=== PATIENT | female | born 1990 | race Caucasian/White ===

== ENCOUNTER 2018-11-11 21:03 | Emergency (ER) | payer BC, OTHER ==
[2018-11-11 21:18] VITALS: BP 117/69
[2018-11-11] MEDS ORDERED: Lactated Ringers 1,000 ML IV ONE (21:22)
[2018-11-11] MEDS ORDERED: Lactated Ringers 1,000 ML IV SCH (21:30)
[2018-11-11] MEDS ORDERED: Acetaminophen/HYDROcodone 325-5 MG Tab PO ONE (22:15)
--- NOTE | 2018-11-11 23:11 | EDM.PDOC ---
ED HPI GENERAL MEDICAL PROBLEM - General Chief Complaint: Upper Extremity Injury/Pain Stated Complaint: ARM INJURY Time Seen by Provider: 11/11/18 21:09 - History of Present Illness INITIAL COMMENTS - FREE TEXT/NARRATIVE: 28-year-old female presents emergency room after an injury to her right hand. The patient was walking down the stairs and stuffed her hand in into a "electrical service box. Patient states she felt a shock and has a shooting pain up her right forearm this pain has continued. Time of injury was roughly an hour ago. Patient denies any other injuries she did not hit her head she is up-to-date on her tetanus. right arm Pain Score (Numeric/FACES): 7 - Related Data Allergies Allergy/AdvReac Type Severity Reaction Status Date / Time cinnamon Allergy Anaphylactic Verified 11/11/18 21:18 Shock latex Allergy Anaphylactic Verified 11/11/18 21:18 Shock lidocaine Allergy Anaphylactic Verified 11/11/18 21:18 Shock menthol [From Icy Hot] Allergy Rash Verified 11/11/18 21:18 methyl salicylate Allergy Rash Verified 11/11/18 21:18 [From Icy Hot] Home Meds: Home Meds Acetaminophen [Tylenol Extra Strength] 500 mg PO Q4HR PRN 04/20/16 [History] Escitalopram [Lexapro] 10 mg PO DAILY 04/20/16 [History] Iron,Carbonyl/Vit C/Vit B12/Fa [Iron 100 Plus Tablet] 1 each PO DAILY 04/20/16 [ History] Levothyroxine 150 mcg PO ACBREAKFAST 04/20/16 [History] Vit 90/Iron Fum/Folic [ Formula] 1 each PO DAILY 04/20/16 [ History] Zolpidem [Ambien] 5 mg PO BEDTIME 04/20/16 [History] Acetaminophen/oxyCODONE [Percocet 325-5 MG] 1 tab PO Q8H PRN #20 tablet [Rx] Docusate Sodium [Colace] 100 mg PO Q12H PRN #0 cap 04/22/16 [Rx] Ibuprofen [IJD: Ibuprofen] 200 - 600 mg PO Q6H PRN #0 tablet 04/22/16 [Rx] Simethicone 80 mg PO QIDACANDBED tab.chew 04/22/16 [Rx] Past Medical History - Past Health History Medical/Surgical History: Denies 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: 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, Psychiatric History: Reports: Anxiety, Depression Endocrine/Metabolic History: Reports: Hypothyroidism - Infectious Disease History Infectious Disease History: Reports: None - Past Surgical History Endocrine Surgical History: Reports: None Social & Family History - Family History Family Medical History: Noncontributory Cardiac: Reports: [place] Other Cardiac Family History: father, grandparent Oncologic: Reports: Other (See Below) Other Oncologic Family History: cancer in grandparent-unknown - Tobacco Use Smoking Status *Q: Current Some Day Smoker Years of Tobacco use: 4 Packs/Tins Daily: 0.1 - Caffeine Use Caffeine Use: Reports: Coffee - Recreational Drug Use Recreational Drug Use: No Review of Systems - Review of Systems Review Of Systems: See Below Constitutional: Reports: No Symptoms Eyes: Reports: No Symptoms Ears: Reports: No Symptoms Nose: Reports: No Symptoms Mouth/Throat: Reports: No Symptoms Respiratory: Reports: No Symptoms Cardiovascular: Reports: No Symptoms GI/Abdominal: Reports: No Symptoms Genitourinary: Reports: No Symptoms Musculoskeletal: Reports: No Symptoms Skin: Reports: No Symptoms Neurological: Reports: No Symptoms ED EXAM, GENERAL - Physical Exam Exam: See Below Exam Limited By: No Limitations General Appearance: Alert, No Apparent Distress Head: Atraumatic, Normocephalic Neck: Normal Inspection, Supple, Non-Tender, Full Range of Motion. No: Lymphadenopathy (L), Lymphadenopathy (R) Respiratory/Chest: No Respiratory Distress, Lungs Clear, Normal Breath Sounds, No Accessory Muscle Use, Chest Non-Tender Cardiovascular: Regular Rate, Rhythm, No Edema, No Murmur Extremities: Other (Examination of her right forearm shows no injury that appears obvious to the right hand or upper extremity no evidence of any thermal injury no laceration or puncture no deformity or other abnormality seen neurovascular status appears to be intact. Really no significant swelling is present) EKG INTERPRETATION EKG Date: 11/11/18 Rhythm: NSR [place]: Normal P-Wave: Present QRS: Normal ST-T: Normal QT: Normal Comparison: NA - No Prior EKG EKG Interpretation Comments: Normal Course - Vital Signs Last Recorded V/S: Last Vital Signs Temp 37.2 C 11/11/18 21:13 Pulse 70 11/11/18 21:13 Resp 18 11/11/18 21:13 BP 117/69 11/11/18 21:13 Pulse Ox 100 11/11/18 21:13 - Orders/Labs/Meds Orders: Active Orders 24 hr Category Date Time Status EKG Documentation Completion [RC] STAT Care 11/11/18 21:20 Active Hand Comp Min 3V Rt [CR] Stat Exams 11/11/18 22:14 Taken MYOGLOBIN, URINE Stat Lab 11/11/18 22:00 Received URINALYSIS W/MICROSCOPIC [UA W/MICROSCOPIC] [URIN] Stat Lab 11/11/18 22:00 Results Lactated Ringers [Ringers, Lactated] 1,000 ml Med 11/11/18 21:30 Active IV ASDIRECTED Medication Orders Lactated Ringer's (Ringers, Lactated) 1,000 mls @ 150 mls/hr IV ASDIRECTED TU Last Admin: 11/11/18 23:00 Dose: 150 mls/hr Labs: Laboratory Tests 11/11/18 11/11/18 11/11/18 Range/Units 21:40 22:00 22:00 Sodium 141 (136-145) mEq/L Potassium 3.7 (3.5-5.1) mEq/L Chloride 105 (98-107) mEq/L Carbon Dioxide 27 (21-32) mEq/L Anion Gap 12.7 (5-15) BUN 15 (7-18) mg/dL Creatinine 0.8 (0.55-1.02) mg/dL Est Cr Clr Drug Dosing 83.20 mL/min Estimated GFR (MDRD) > 60 (>60) mL/min BUN/Creatinine Ratio 18.8 H (14-18) Glucose 78 (74-106) mg/dL Calcium 9.1 (8.5-10.1) mg/dL Total Bilirubin 0.4 (0.2-1.0) mg/dL AST 21 (15-37) U/L ALT 27 (14-59) U/L Alkaline Phosphatase 55 (46-116) U/L CK-MB (CK-2) 0.6 (0-3.6) ng/ml Troponin I < 0.017 (0.00-0.056) ng/mL Total Protein 7.7 (6.4-8.2) g/dl Albumin 4.4 (3.4-5.0) g/dl Globulin 3.3 gm/dL Albumin/Globulin Ratio 1.3 (1-2) Urine Color Yellow (Yellow) Urine Appearance Clear (Clear) Urine pH 7.5 (5.0-8.0) Ur Specific [place] 1.015 (1.005-1.030) Urine Protein Negative (Negative) Urine Glucose (UA) Negative (Negative) Urine Ketones Negative (Negative) Urine Occult Blood Negative (Negative) Urine Nitrite Negative (Negative) Urine Bilirubin Negative (Negative) Urine Urobilinogen 0.2 (0.2-1.0) Ur Leukocyte Esterase Negative (Negative) Urine HCG, Qual Negative (NEGATIVE) Meds: Medications Generic Name Dose Route Start Last Admin Trade Name Freq PRN Reason Stop Dose Admin Lactated Ringer's 1,000 mls @ 150 mls/hr 11/11/18 21:30 11/11/18 23:00 Ringers, Lactated IV 150 mls/hr ASDIRECTED TU Administration Discontinued Medications Generic Name Dose Route Start Last Admin Trade Name Freq PRN Reason Stop Dose Admin Hydrocodone Bitart/Acetaminophen 1 tab 11/11/18 22:15 11/11/18 22:20 [place] 325-5 Mg PO 11/11/18 22:16 1 tab ONETIME ONE Administration Lactated Ringer's 1,000 mls @ 999 minidrops/sec 11/11/18 21:22 11/11/18 21:38 Ringers, Lactated IV 11/11/18 21:23 999 minidrops/sec .BOLUS ONE Administration - Re-Assessments/Exams Free Text/Narrative Re-Assessment/Exam: 11/11/18 23:06 Labs unrevealing hCG negative x-ray of the hand unremarkable main concern is if she got a significant exposure to electrical current which I don't think is the case and she probably injured a peripheral nerve. However we'll have her push lots of fluids and return if her condition worsens Departure - Departure Time of Disposition: 23:06 Disposition: Home, Self-Care 01 Clinical Impression: Injury of right hand, Injury due to electrical exposure - Discharge Information Referrals: PCP,Not In Area [Primary Care Provider] - Additional Instructions: Return to the emergency room with any questions problems worsening symptoms. Follow-up in the clinic in 2 days if not completely better. [phone]. Use the pain medication one pill every 4-6 hours as needed for pain. Allow 12 hours after using this medication before driving or returning to work. Push lots and lots of fluids. - My Orders Last 24 Hours: My Active Orders 11/11/18 21:20 EKG Documentation Completion [RC] STAT 11/11/18 21:30 Lactated Ringers [Ringers, Lactated] 1,000 ml IV ASDIRECTED 11/11/18 22:00 MYOGLOBIN, URINE Stat URINALYSIS W/MICROSCOPIC [UA W/MICROSCOPIC] [URIN] Stat 11/11/18 22:14 Hand Comp Min 3V Rt [CR] Stat - Assessment/Plan Last 24 Hours: My Active Orders 11/11/18 21:20 EKG Documentation Completion [RC] STAT 11/11/18 21:30 Lactated Ringers [Ringers, Lactated] 1,000 ml IV ASDIRECTED 11/11/18 22:00 MYOGLOBIN, URINE Stat URINALYSIS W/MICROSCOPIC [UA W/MICROSCOPIC] [URIN] Stat 11/11/18 22:14 Hand Comp Min 3V Rt [CR] Stat
--- NOTE | 2018-11-12 10:00 | CR ---
Right hand: Four views of the right hand were obtained. Comparison: No previous study. Study is less than optimal with fingers being held in flexion. Patient's ring also obscures some bony details. No discrete fracture or other bony abnormality is appreciated. Impression: 1. Less than optimal exam. Within this limitation, nothing acute is appreciated on right hand exam. Diagnostic code #1
== END 2018-11-11 23:30 | disposition home or self-care (01) ==
LOC: JD.ED 21:03
DX: S69.91XA Unspecified injury of right wrist, hand and finger(s), initial encounter (principal); F41.9 Anxiety disorder, unspecified; F32.9 Major depressive disorder, single episode, unspecified; F17.210 Nicotine dependence, cigarettes, uncomplicated; Z91.040 Latex allergy status; Z88.8 Allergy status to other drugs, medicaments and biological substances; W86.8XXA Exposure to other electric current, initial encounter
CPT/HCPCS: 36415; 73130; 80053; 81001; 81025; 82553; 83874; 84484; 93005; 96365; 99284; A9270; J7120

== ENCOUNTER 2020-08-04 11:29 | Emergency (ER) | payer BC ==
[2020-08-04] MEDS ORDERED: Sodium Chloride 0.9% 10 ML Syringe FLUSH PRN (11:53)
[2020-08-04] MEDS ORDERED: Ondansetron 4 MG/2 ML SDV IVPUSH ONE (11:53)
[2020-08-04] MEDS ORDERED: Morphine 4 MG/ML VIAL IVPUSH ONE (11:54)
[2020-08-04] MEDS ORDERED: Ketorolac 30 MG/ML SDV IVPUSH ONE (11:54)
[2020-08-04] MEDS ORDERED: fentaNYL 100 MCG/2 ML SDV IVPUSH ONE ×2 (12:51→14:16)
[2020-08-04] MEDS ORDERED: LORazepam 1 MG Tab PO ONE (13:52)
--- NOTE | 2020-08-04 14:24 | EDM.PDOC ---
ED HPI GENERAL MEDICAL PROBLEM - General Chief Complaint: Abdominal Pain Stated Complaint: R SIDE/ABDOMINAL PAIN Time Seen by Provider: 08/04/20 11:41 Source of Information: Reports: Patient History Limitations: Reports: No Limitations - History of Present Illness INITIAL COMMENTS - FREE TEXT/NARRATIVE: The patient presents with right lower abdominal pain and right flank pain. This started about 3 days ago and has progressed. She has nausea and vomiting. She has no fever, chills, cough, congestion, runny nose, chest pain, shortness of breath, dysuria or diarrhea. She has no history of kidney stones. She has no hematuria. She has no gallbladder but she has an appendix. Onset: Gradual Duration: Day(s): Location: Reports: Abdomen Quality: Reports: Sharp Severity: Severe Improves with: Reports: None Worsens with: Reports: None Associated Symptoms: Reports: Nausea/Vomiting. Denies: Chest Pain, Cough, Fever/Chills, Headaches, Shortness of Breath Right Lower Abdomen Pain Score (Numeric/FACES): 8 - Related Data Allergies Allergy/AdvReac Type Severity Reaction Status Date / Time latex Allergy Severe Anaphylactic Verified 08/04/20 13:15 Shock lidocaine Allergy Severe Anaphylactic Verified 08/04/20 13:15 Shock menthol [From Icy Hot] Allergy Severe Rash Verified 08/04/20 13:15 cinnamon Allergy Anaphylactic Verified 08/04/20 11:40 Shock methyl salicylate Allergy Rash Verified 08/04/20 11:40 [From Icy Hot] hydromorphone [From Dilaudid] AdvReac Severe Hallucinati Verified 08/04/20 13:15 ons Home Meds: Home Meds Acetaminophen [Tylenol Extra Strength] 500 mg PO Q4HR PRN 04/20/16 [History] Escitalopram [Lexapro] 15 mg PO DAILY 04/20/16 [History] Levothyroxine 150 mcg PO ACBREAKFAST 04/20/16 [History] Docusate Sodium [Colace] 100 mg PO Q12H PRN #0 cap 04/22/16 [Rx] Ibuprofen [IJD: Ibuprofen] 200 - 600 mg PO Q6H PRN #0 tablet 04/22/16 [Rx] Lactobacillus Combination No.4 [Probiotic] 1 cap PO DAILY 08/04/20 [History] oxyCODONE HCl/Acetaminophen [Percocet 5-325 mg Tablet] 1 - 2 each PO Q6HR PRN #20 tablet 08/04/20 [Rx] Past Medical History - Past Health History Medical/Surgical History: Denies 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, Psychiatric History: Reports: Anxiety, Depression Endocrine/Metabolic History: Reports: Hypothyroidism - Infectious Disease History Infectious Disease History: Reports: Chicken Pox - Past Surgical History GI Surgical History: Reports: Cholecystectomy Female Surgical History: Reports: Section, Other (See Below) Other Female Surgeries/Procedures: tummy tuck Endocrine Surgical History: Reports: None Social & Family History - Family History Family Medical History: Noncontributory Cardiac: Reports: [place] Other Cardiac Family History: father, grandparent Oncologic: Reports: Other (See Below) Other Oncologic Family History: cancer in grandparent-unknown - Tobacco Use Tobacco Use Status *Q: Former Tobacco User Used Tobacco, but Quit: Yes Month/Year Tobacco Last Used: 2009 - Caffeine Use Caffeine Use: Reports: Coffee - Recreational Drug Use Recreational Drug Use: No ED ROS GENERAL - Review of Systems Review Of Systems: See Below Constitutional: Reports: No Symptoms HEENT: Reports: No Symptoms Respiratory: Reports: No Symptoms Cardiovascular: Reports: No Symptoms Endocrine: Reports: No Symptoms GI/Abdominal: Reports: Abdominal Pain, Nausea. Denies: Diarrhea, Vomiting : Reports: Flank Pain. Denies: Dysuria, Frequency Musculoskeletal: Reports: Back Pain ED EXAM, GI/ABD - Physical Exam Exam: See Below Exam Limited By: No Limitations General Appearance: Alert, Mild Distress Ears: Normal External Exam Throat/Mouth: Normal Inspection Head: Atraumatic, Normocephalic Neck: Normal Inspection Respiratory/Chest: No Respiratory Distress, Lungs Clear, Normal Breath Sounds Cardiovascular: Regular Rate, Rhythm, No Edema, No Murmur GI/Abdominal Exam: Soft, No Organomegaly, No Mass, Tender (Moderate tenderness to the RLQ) Back Exam: Normal Inspection Course - Vital Signs Last Recorded V/S: Last Vital Signs Temp 97.7 F 08/04/20 11:37 Pulse 75 08/04/20 11:37 Resp 18 08/04/20 11:37 BP 120/77 08/04/20 11:37 Pulse Ox 100 08/04/20 11:37 - Orders/Labs/Meds Orders: Active Orders 24 hr Category Date Time Status Peripheral IV Care [RC] . DIRECTED Care 08/04/20 11:53 Active HYDROmorphone [Dilaudid] Med 08/04/20 15:49 Once 1 mg IVPUSH ONETIME ONE Sodium Chloride 0.9% [Saline Flush] Med 08/04/20 11:53 Active 10 ml FLUSH ASDIRECTED PRN ED Antiemetic Medication Reflex [OM.PC] Stat Oth 08/04/20 11:53 Ordered Peripheral IV Insertion Adult [OM.PC] Stat Oth 08/04/20 11:53 Ordered Medication Orders Sodium Chloride (Saline Flush) 10 ml FLUSH ASDIRECTED PRN PRN Reason: Keep Vein Open Last Admin: 08/04/20 12:25 Dose: 10 ml Documented by: AMI Labs: Laboratory Tests 08/04/20 08/04/20 08/04/20 Range/Units 12:15 12:15 12:15 WBC 5.60 (3.98-10.04) K/mm3 RBC 4.42 (3.98-5.22) M/mm3 Hgb 14.1 D (11.2-15.7) gm/dl Hct 42.0 (34.1-44.9) % MCV 95.0 H (79.4-94.8) fl MCH 31.9 (25.6-32.2) pg MCHC 33.6 (32.2-35.5) g/dl RDW Std Deviation 40.1 (36.4-46.3) fL Plt Count 200 D (182-369) K/mm3 MPV 9.7 (9.4-12.3) fl Neut % (Auto) 48.1 (34.0-71.1) % Lymph % (Auto) 34.6 (19.3-51.7) % [place] % (Auto) 8.0 (4.7-12.5) % Eos % (Auto) 8.6 H (0.7-5.8) Baso % (Auto) 0.5 (0.1-1.2) % Neut # (Auto) 2.69 (1.56-6.13) K/mm3 Lymph # (Auto) 1.94 (1.18-3.74) K/mm3 [place] # (Auto) 0.45 H (0.24-0.36) K/mm3 Eos # (Auto) 0.48 H (0.04-0.36) K/mm3 Baso # (Auto) 0.03 (0.01-0.08) K/mm3 Sodium 139 (136-145) mEq/L Potassium 3.7 (3.5-5.1) mEq/L Chloride 102 (98-107) mEq/L Carbon Dioxide 27 (21-32) mEq/L Anion Gap 13.7 (5-15) BUN 11 (7-18) mg/dL Creatinine 0.9 (0.55-1.02) mg/dL Est Cr Clr Drug Dosing 72.95 mL/min Estimated GFR (MDRD) > 60 (>60) mL/min BUN/Creatinine Ratio 12.2 L (14-18) Glucose 86 (74-106) mg/dL Calcium 9.3 (8.5-10.1) mg/dL Total Bilirubin 0.7 (0.2-1.0) mg/dL AST 22 (15-37) U/L ALT 30 (14-59) U/L Alkaline Phosphatase 55 (46-116) U/L Total Protein 7.8 (6.4-8.2) g/dl Albumin 4.4 (3.4-5.0) g/dl Globulin 3.4 gm/dL Albumin/Globulin Ratio 1.3 (1-2) Lipase 90 (73-393) U/L HCG, Qual Negative (NEGATIVE) Urine Color (Yellow) Urine Appearance (Clear) Urine pH (5.0-8.0) Ur Specific [place] (1.005-1.030) Urine Protein (Negative) Urine Glucose (UA) (Negative) Urine Ketones (Negative) Urine Occult Blood (Negative) Urine Nitrite (Negative) Urine Bilirubin (Negative) Urine Urobilinogen (0.2-1.0) Ur Leukocyte Esterase (Negative) Urine RBC (0-5) /hpf Urine WBC (0-5) /hpf Ur Squamous Epith Cells (0-5) /hpf Urine Bacteria (FEW) /hpf Urine Mucus (FEW) /hpf 08/04/20 Range/Units 12:21 WBC (3.98-10.04) K/mm3 RBC (3.98-5.22) M/mm3 Hgb (11.2-15.7) gm/dl Hct (34.1-44.9) % MCV (79.4-94.8) fl MCH (25.6-32.2) pg MCHC (32.2-35.5) g/dl RDW Std Deviation (36.4-46.3) fL Plt Count (182-369) K/mm3 MPV (9.4-12.3) fl Neut % (Auto) (34.0-71.1) % Lymph % (Auto) (19.3-51.7) % [place] % (Auto) (4.7-12.5) % Eos % (Auto) (0.7-5.8) Baso % (Auto) (0.1-1.2) % Neut # (Auto) (1.56-6.13) K/mm3 Lymph # (Auto) (1.18-3.74) K/mm3 [place] # (Auto) (0.24-0.36) K/mm3 Eos # (Auto) (0.04-0.36) K/mm3 Baso # (Auto) (0.01-0.08) K/mm3 Sodium (136-145) mEq/L Potassium (3.5-5.1) mEq/L Chloride (98-107) mEq/L Carbon Dioxide (21-32) mEq/L Anion Gap (5-15) BUN (7-18) mg/dL Creatinine (0.55-1.02) mg/dL Est Cr Clr Drug Dosing mL/min Estimated GFR (MDRD) (>60) mL/min BUN/Creatinine Ratio (14-18) Glucose (74-106) mg/dL Calcium (8.5-10.1) mg/dL Total Bilirubin (0.2-1.0) mg/dL AST (15-37) U/L ALT (14-59) U/L Alkaline Phosphatase (46-116) U/L Total Protein (6.4-8.2) g/dl Albumin (3.4-5.0) g/dl Globulin gm/dL Albumin/Globulin Ratio (1-2) Lipase (73-393) U/L HCG, Qual (NEGATIVE) Urine Color Light yellow (Yellow) Urine Appearance Clear (Clear) Urine pH 7.0 (5.0-8.0) Ur Specific [place] 1.020 (1.005-1.030) Urine Protein Negative (Negative) Urine Glucose (UA) Negative (Negative) Urine Ketones Negative (Negative) Urine Occult Blood Negative (Negative) Urine Nitrite Negative (Negative) Urine Bilirubin Negative (Negative) Urine Urobilinogen 0.2 (0.2-1.0) Ur Leukocyte Esterase Negative (Negative) Urine RBC 0-5 (0-5) /hpf Urine WBC 0-5 (0-5) /hpf Ur Squamous Epith Cells 0-5 (0-5) /hpf Urine Bacteria Few (FEW) /hpf Urine Mucus Few (FEW) /hpf Meds: Medications Generic Name Dose Route Start Last Admin Trade Name Freq PRN Reason Stop Dose Admin Sodium Chloride 10 ml 08/04/20 11:53 08/04/20 12:25 Saline Flush FLUSH 10 ml ASDIRECTED PRN Administration Keep Vein Open Discontinued Medications Generic Name Dose Route Start Last Admin Trade Name Freq PRN Reason Stop Dose Admin Fentanyl 100 mcg 08/04/20 12:51 08/04/20 12:57 Sublimaze IVPUSH 08/04/20 12:52 100 mcg ONETIME ONE Administration Fentanyl 50 mcg 08/04/20 14:16 08/04/20 14:33 Sublimaze IVPUSH 08/04/20 14:17 50 mcg ONETIME ONE Administration Ketorolac Tromethamine 30 mg 08/04/20 11:54 08/04/20 12:24 Toradol IVPUSH 08/04/20 11:55 30 mg ONETIME ONE Administration Lorazepam 1 mg 08/04/20 13:52 08/04/20 14:09 Ativan PO 08/04/20 13:53 1 mg ONETIME ONE Administration Morphine Sulfate 4 mg 08/04/20 11:54 08/04/20 12:25 Morphine IVPUSH 08/04/20 11:55 4 mg ONETIME ONE Administration Ondansetron HCl 4 mg 08/04/20 11:53 08/04/20 12:24 Zofran IVPUSH 08/04/20 11:54 4 mg ONETIME ONE Administration - Re-Assessments/Exams Free Text/Narrative Re-Assessment/Exam: 08/04/20 14:26 I ordered an IV NS 1L bolus, zofran 4mg IV, morphine 4mg IV, toradol 30mg IV, labs, UA and a CT of her abdomen and pelvis without contrast. Her CBC and CMP look good. Her lipase is negative. Her HCG is negative. Her UA shows no UTI. Her CT shows no evidence of acute appendicitis. 2.7cm cystic lesion noted within the right adnexal region. In view of the patient's symptoms, transabdominal transvaginal US may be of further benefit as clinically warranted. 1.5cm rounded hyperdense areas noted within the inferior aspect of the right anterior rectus muscle and may represent a small hematoma. Other etiologies are not excluded. There is small amount of free pelvic fluid present. No obstructive uropathy. I have ordered an transvaginal US. 08/04/20 15:49 The US shows no intrauterine masses. Septated cyst is noted on the right ovary measuring 2.8 X 1.7 X 2.6. Small amount of fluid noted within the cervical region. No evidence of free fluid. She still has pain. She is requesting dilaudid this time. She said she had some hallucinations in the past but would like some now. Departure - Departure Time of Disposition: 15:50 Disposition: Home, Self-Care 01 Condition: Good Clinical Impression: Ovarian cyst Qualifiers: Laterality: right Qualified Code(s): N83.201 - Unspecified ovarian cyst, right side - Discharge Information *PRESCRIPTION DRUG MONITORING PROGRAM REVIEWED*: Not Applicable *COPY OF PRESCRIPTION DRUG MONITORING REPORT IN PATIENT SHANIKA: Not Applicable Prescriptions: oxyCODONE HCl/Acetaminophen [Percocet 5-325 mg Tablet] 1 - 2 each PO Q6HR PRN #20 tablet PRN Reason: Pain Referrals: PCP,None [Primary Care Provider] - Diane Art MD [Physician] - 1 Week Forms: ED Department Discharge Additional Instructions: Take tylenol or motrin for pain. If that does not help, try the percocete. Follow up with Dr Art within a week. Please return if you are worse. Sepsis Event Note (ED) - Evaluation Sepsis Screening Result: No Definite Risk - Focused Exam Vital Signs: Vital Signs Temp Pulse Resp BP Pulse Ox 08/04/20 11:37 97.7 F 75 18 120/77 100 - My Orders Last 24 Hours: My Active Orders 08/04/20 11:53 Peripheral IV Care [RC] . DIRECTED Sodium Chloride 0.9% [Saline Flush] 10 ml FLUSH ASDIRECTED PRN ED Antiemetic Medication Reflex [OM.PC] Stat Peripheral IV Insertion Adult [OM.PC] Stat 08/04/20 15:49 HYDROmorphone [Dilaudid] 1 mg IVPUSH ONETIME ONE - Assessment/Plan Last 24 Hours: My Active Orders 08/04/20 11:53 Peripheral IV Care [RC] . DIRECTED Sodium Chloride 0.9% [Saline Flush] 10 ml FLUSH ASDIRECTED PRN ED Antiemetic Medication Reflex [OM.PC] Stat Peripheral IV Insertion Adult [OM.PC] Stat 08/04/20 15:49 HYDROmorphone [Dilaudid] 1 mg IVPUSH ONETIME ONE
--- NOTE | 2020-08-04 15:00 | CT ---
PROCEDURE INFORMATION: Exam: CT Abdomen And Pelvis Without Contrast Exam date and time: 08/04/2020 1:13 PM Age: 30 years old Clinical indication: Right lower quadrant (rlq); Patient HX: Right flank, rlq abdominal pain TECHNIQUE: Imaging protocol: Computed tomography of the abdomen and pelvis without contrast. COMPARISON: No relevant prior studies available. FINDINGS: Liver: Normal. No mass. Gallbladder and bile ducts: Normal. No calcified stones. No ductal dilation. Pancreas: Normal. No ductal dilation. Spleen: Normal. No splenomegaly. Adrenal glands: Normal. No mass. Kidneys and ureters: Nonobstructing 2 mm calcification present within the right kidney. The left kidney is normal. No obstructive uropathy. Stomach and bowel: Unremarkable. No obstruction. No mucosal thickening. Appendix: No evidence of acute appendicitis. Intraperitoneal space: There is a small amount of free pelvic fluid present. Vasculature: Unremarkable. No abdominal aortic aneurysm. Lymph nodes: Unremarkable. No enlarged lymph nodes. Urinary bladder: Unremarkable as visualized. Reproductive: 2.7 cm cystic lesion noted within the right adnexal region. Bones/joints: Unremarkable. No acute fracture. Soft tissues: 1.5 cm rounded hyperdense areas noted within the inferior aspect of the right anterior rectus muscle and may represent a small hematoma. Other etiologies are not excluded. Bilateral breast implants are in place. IMPRESSION: 1. No evidence of acute appendicitis. 2. 2.7 cm cystic lesion noted within the right adnexal region. In view of the patient's symptoms, transabdominal transvaginal ultrasound may be of further benefit, as clinically warranted. 3. 1.5 cm rounded hyperdense areas noted within the inferior aspect of the right anterior rectus muscle and may represent a small hematoma. Other etiologies are not excluded. 4. There is a small amount of free pelvic fluid present. 5. No obstructive uropathy. Thank you for allowing us to participate in the care of your patient. Dictated and Authenticated by: Jeb Mendosa DO 08/04/2020 2:43 PM Central Time ([place] & [place]) [facility] CENTERJose Antonio
--- NOTE | 2020-08-04 15:36 | US ---
PROCEDURE INFORMATION: Exam: US Duplex Artery or Vein of the Abdominal and/or Reproductive Organs, Limited Exam date and time: 08/04/2020 2:12 PM Age: 30 years old Clinical indication: Pain and abnormal findings; Abnormal imaging test; Abdominal pain; Right lower quadrant; Prior surgery; Surgery date: 6+ months; Surgery type: Laproscopics to remove endometriosis TECHNIQUE: Imaging protocol: Real-time duplex ultrasound scan of the arterial or venous flow of the abdomen and/or reproductive organs, with color Doppler flow and spectral waveform analysis with image documentation. Exam focused on the region of clinical interest. Duplex images were received to evaluate vascular conditions. COMPARISON: CT Abdomen Pelvis wo Cont 08/04/2020 1:13 PM FINDINGS: Ovaries: Blood flow is noted to both ovaries. No evidence of ovarian torsion. IMPRESSION: No evidence of ovarian torsion. PROCEDURE INFORMATION: Exam: US Pelvis, Transvaginal Exam date and time: 08/04/2020 2:12 PM Age: 30 years old Clinical indication: Pain and abnormal findings; Abnormal imaging test; Abdominal pain; Right lower quadrant; Prior surgery; Surgery date: 6+ months; Surgery type: Laproscopics to remove endometriosis TECHNIQUE: Imaging protocol: Real-time transvaginal pelvic ultrasound with image documentation. Transvaginal imaging was used for better evaluation of the endometrium, adnexa, and/or cervix. COMPARISON: CT Abdomen Pelvis wo Cont 08/04/2020 1:13 PM FINDINGS: Uterus/cervix: Uterus measures 9.2 x 3.5 x 5.3 cm. No intrauterine masses. Small amount of fluid noted within the cervical region. Right adnexa: Right ovary measures 3.4 x 2.0 x 2.8 cm. Septated cyst is noted on the right ovary measuring 2.9 x 1.7 x 2.6 cm. Left adnexa: Left ovary measures 2.9 x 1.0 x 1.8 cm. Intraperitoneal space: No evidence of free fluid. IMPRESSION: 1. No intrauterine masses. 2. Septated cyst is noted on the right ovary measuring 2.9 x 1.7 x 2.6 cm. 3. Small amount of fluid noted within the cervical region. 4. No evidence of free fluid. Thank you for allowing us to participate in the care of your patient. Dictated and Authenticated by: Jeb Mendosa DO 08/04/2020 4:29 PM Central Time ([place] & [place]) [place]
[2020-08-04] MEDS ORDERED: HYDROmorphone 1 MG/ML Syringe IVPUSH ONE (15:49)
[2020-08-04 16:46] VITALS: BP 109/82; PULSE 61
== END 2020-08-04 16:30 | disposition home or self-care (01) ==
LOC: JD.ED 11:29
DX: N83.201 Unspecified ovarian cyst, right side (principal); E03.9 Hypothyroidism, unspecified; F41.9 Anxiety disorder, unspecified; F32.9 Major depressive disorder, single episode, unspecified; Z91.040 Latex allergy status; Z88.4 Allergy status to anesthetic agent; Z91.048 Other nonmedicinal substance allergy status; Z91.018 Allergy to other foods; Z88.5 Allergy status to narcotic agent; Z79.899 Other long term (current) drug therapy; Z87.891 Personal history of nicotine dependence
CPT/HCPCS: 36415; 74176; 76830; 80053; 81001; 83690; 84703; 85025; 96374; 96375; 96376; 99284; A9270; J1170; J1885; J2270; J2405; J3010